=== PATIENT | male | born 1960 | race Caucasian/White ===

== ENCOUNTER → 2018-07-31 | Outpatient (CLI) | payer BC ==
[~2018-07-31] MED LIST: LISINOPRIL5 MG PO; ZOCOR80 MG PO
== END ==
LOC: RAD 15:06
DX: M43.22 Fusion of spine, cervical region (principal); M48.02 Spinal stenosis, cervical region; M25.78 Osteophyte, vertebrae

== ENCOUNTER → 2018-08-08 | Outpatient (CLI) | payer BC | LOC: MRI 12:29 | DX: M50.122 Cervical disc disorder at C5-C6 level with radiculopathy (principal); M48.02 Spinal stenosis, cervical region; M25.78 Osteophyte, vertebrae; M12.88 Other specific arthropathies, not elsewhere classified, other specified site ==

== ENCOUNTER → 2020-06-28 | Outpatient (CLI) | payer BC ==
[2020-06-28 16:04] LABS: CREATININE 1.4 mg/dL (0.7-1.3)
== END ==
LOC: MRI 15:17 → LAB 15:17
PROVIDERS: ATTEND Family Medicine
DX: R51.9 Headache, unspecified (principal); H53.2 Diplopia

== ENCOUNTER 2020-10-04 14:32 | Emergency (ER) | payer BC ==
[~2020-10-04] VITALS: Ht 175.3 cm; Wt 72.6 kg
[2020-10-04] MEDS ORDERED: METFORMIN HCL500 M3 PO (14:44)
[2020-10-04] MEDS ORDERED: FLOMAX0.4 MG PO (15:09)
[2020-10-04 16:42] VITALS: BP 115/88
== END 2020-10-04 16:45 | disposition home or self-care (01) ==
LOC: ER 14:32
DX: R33.9 Retention of urine, unspecified (principal); E11.9 Type 2 diabetes mellitus without complications; Z79.899 Other long term (current) drug therapy; Z88.5 Allergy status to narcotic agent

== ENCOUNTER 2020-10-07 18:55 | Emergency (ER) | payer BC ==
[~2020-10-07] VITALS: Ht 175.3 cm; Wt 72.6 kg
[~2020-10-07 18:55] MED LIST changes: +FLOMAX0.4 MG PO; +METFORMIN HCL500 M3 PO
[2020-10-07 19:21] LABS: URINE BILIRUBIN NEGATIVE (Negative); URINE BLOOD 1+ (Negative); URINE CLARITY CLEAR; URINE COLOR YELLOW; URINE GLUCOSE-RANDOM* 3+ (Negative); URINE KETONES NEGATIVE (Negative); URINE LEUKOCYTES-REFLEX NEGATIVE (Negative); URINE NITRITE-REFLEX NEGATIVE (Negative); URINE PROTEIN (DIPSTICK) NEGATIVE (Negative); URINE UROBILINOGEN 0.2 E.U./dl (0.2-1.0)
[2020-10-07 19:43] LABS: BACTERIA-REFLEX 1-9 Few /HPF (None Seen); CASTS None Seen /LPF (None Seen); SQUAMOUS None Seen /LPF (0-3); URINE RBC 0-2 Rare /HPF (0-2); URINE WBC-REFLEX 0-5 Rare /HPF (0-5)
[2020-10-07 19:44] LABS: CRYSTALS None Seen /LPF (None Seen)
[2020-10-07] MEDS ORDERED: EZETIMIBE10 MG PO (21:32)
[2020-10-07] MEDS ORDERED: AMARYL2 MG PO (21:32)
[2020-10-07] MEDS ORDERED: JARDIANCE10 MG PO (21:33)
[2020-10-07] MEDS ORDERED: SYNTHROID50 MCG PO (21:34)
[2020-10-07] MEDS ORDERED: ROSUVASTATIN CA20 MG PO (21:34)
[2020-10-07] MEDS ORDERED: ENULOSE10 GM/15 M PO (21:42)
[2020-10-07 22:00] VITALS: BP 118/72
== END 2020-10-07 22:00 | disposition home or self-care (01) ==
LOC: ER 18:55
PROVIDERS: Emergency Medicine
DX: R33.9 Retention of urine, unspecified (principal); K59.00 Constipation, unspecified; E11.9 Type 2 diabetes mellitus without complications; Z79.899 Other long term (current) drug therapy; Z88.5 Allergy status to narcotic agent

== ENCOUNTER 2020-10-13 07:46 | Emergency (ER) | payer BC ==
[~2020-10-13] VITALS: Ht 175.3 cm; Wt 72.6 kg
[~2020-10-13 07:46] MED LIST changes: +AMARYL2 MG PO; +ENULOSE10 GM/15 M PO; +EZETIMIBE10 MG PO; +JARDIANCE10 MG PO; +ROSUVASTATIN CA20 MG PO; +SYNTHROID50 MCG PO
[2020-10-13 08:30] LABS: URINE BILIRUBIN NEGATIVE (Negative); URINE BLOOD 3+ (Negative); URINE COLOR RED; URINE GLUCOSE-RANDOM* 3+ (Negative); URINE KETONES NEGATIVE (Negative); URINE LEUKOCYTES-REFLEX NEGATIVE (Negative); URINE NITRITE-REFLEX NEGATIVE (Negative); URINE PROTEIN (DIPSTICK) 3+ (Negative); URINE SPECIFIC GRAVITY 1.025 (1.005-1.035); URINE UROBILINOGEN 0.2 E.U./dl (0.2-1.0)
[2020-10-13 08:31] LABS: URINE CLARITY CLOUDY
[2020-10-13 08:33] LABS: SQUAMOUS 0-3 Few /LPF (0-3); TRANSITIONAL EPITHEL CELL 0-3 Few /LPF (None Seen)
[2020-10-13 08:34] LABS: CASTS None Seen /LPF (None Seen); URINE RBC >20 Many /HPF (0-2)
[2020-10-13 08:35] LABS: BACTERIA-REFLEX 1-9 Few /HPF (None Seen); CRYSTALS None Seen /LPF (None Seen)
[2020-10-13 08:39] LABS: WBC CLUMPS Few (None Seen)
[2020-10-13 08:45] VITALS: BP 96/59
== END 2020-10-13 08:45 | disposition home or self-care (01) ==
LOC: ER 07:46
PROVIDERS: Emergency Medicine
DX: R31.9 Hematuria, unspecified (principal); E11.9 Type 2 diabetes mellitus without complications; Z79.899 Other long term (current) drug therapy; Z88.5 Allergy status to narcotic agent